=== PATIENT | male | born 1955 | race Caucasian/White ===

== ENCOUNTER 2018-07-11 14:22 | Emergency (ER) | payer SELFPAY ==
[2018-07-11 14:39] VITALS: BP 144/106
--- NOTE | 2018-07-11 16:24 | ED Physician Documentation ---
History of Present Illness - Stated complaint Stated Complaint: MED REFILL - Chief complaint Chief Complaint: General - Additonal information Additional information: 62-year-old male presents the emergency department for refills of Ambien and Ativan. The patient has no acute medical complaint and is only requesting medication refills. The patient denies any suicidal or homicidal ideation Review of Systems Constitutional: denies: Fever, Chills Eyes: denies: Discharge Ears: denies: Ear pain Throat: denies: Sore throat Cardiac: denies: Chest pain / pressure Respiratory: denies: Cough GI: denies: Abdominal Pain : denies: Dysuria Musculoskeletal: denies: Neck pain Neurologic: denies: Generalized weakness Psychiatric: denies: Suicidal, Homicidal Immunocompromised: denies: Chemotherapy PD PAST MEDICAL HISTORY - Past Medical History Psych: Anxiety Other Past Medical History: spinal stenosis - Past Surgical History Past Surgical History: Yes General: Other Ortho: Arthroscopic surgery - Present Medications Home Medications: Ambulatory Orders Medication Instructions Recorded Confirmed Zolpidem [Ambien] 10 mg PO HS 07/11/18 07/11/18 - Allergies Allergies/Adverse Reactions: Allergies Allergy/AdvReac Type Severity Reaction Status Date / Time No Known Drug Allergies Allergy Verified 07/11/18 15:40 - Social History Does the pt smoke?: No Smoking Status: Never smoker Does the pt drink ETOH?: No Does the pt have substance abuse?: No - Immunizations Immunizations are current?: No Immunizations: TDAP >10years/unknown - POLST Patient has POLST: No PD ED PE NORMAL - General General: Alert and oriented X 3, No acute distress - HEENT HEENT: Atraumatic, PERRL, EOMI, Ears normal - Derm Derm: Normal color - Extremities Extremities: No deformity - Neuro Neuro: Alert and oriented X 3, Normal speech - Psych Psych: Normal mood Results - Vitals Vitals: Vital Signs - 24 hr 07/11/18 14:35 Temperature 36.1 C L Heart Rate 111 H Respiratory 16 Rate Blood Pressure 144/106 H O2 Saturation 96 Oxygen O2 Source Room air PD MEDICAL DECISION MAKING - ED course ED course: The patient requested a refill of his controlled substances, I explained to him that I would not be able to refill Ambien or Ativan for him. I explained that this needs to come from one prescriber. I suggested that he take melatonin and or Unisom to help as a sleep aid. The patient reports not taking his medications for several days. Presently the patient appears appropriate for discharge. I advised returning for any worsening or any concerns Departure - Departure Disposition: 01 Home, Self Care Clinical Impression: Medication requested Condition: Good Follow-Up: [facility] [Provider Group] [facility] [Provider Group] [facility] [Provider Group] Comments: Please contact primary care for medication refills. Please return to the emergency department for any worsening or any concerns
== END 2018-07-11 16:45 | disposition home or self-care (01) ==
LOC: ED 14:22
DX: Z76.0 Encounter for issue of repeat prescription (principal); F41.9 Anxiety disorder, unspecified
CPT/HCPCS: 99281; 99282

== ENCOUNTER 2018-09-10 07:15 | Outpatient (CLI) | payer MEDICAID ==
[2018-09-10 13:56] LABS: BASOPHILS # (AUTO) 0.1 10^3/uL (0.0-0.1); BASOPHILS % (AUTO) 0.9 %; EOSINOPHILS # (AUTO) 0.2 10^3/uL (0.0-0.7); EOSINOPHILS % (AUTO) 2.7 %; HGB - HEMOGLOBIN 15.5 g/dL (14.0-18.0); LYMPHOCYTES # (AUTO) 2.3 10^3/uL (1.5-3.5); LYMPHOCYTES % (AUTO) 32.6 %; MEAN CORPUSCULAR HEMOGLOBIN 31.3 pg (27.0-31.0); MEAN CORPUSCULAR HGB CONC 33.9 g/dL (32.0-36.0); MEAN CORPUSCULAR VOLUME 92.3 fL (80.0-94.0); MEAN PLATELET VOLUME 10.5 fL (7.4-11.4); MONOCYTES # (AUTO) 0.5 10^3/uL (0.0-1.0); MONOCYTES % (AUTO) 6.8 %; PLT - PLATELET COUNT 207 10^3/uL (130-450); RED BLOOD COUNT 4.96 10^6/uL (4.70-6.10); RED CELL DISTRIBUTION WIDTH 13.4 % (12.0-15.0); WHITE BLOOD COUNT 7.1 x10^3/uL (4.8-10.8)
[2018-09-10 14:22] LABS: THYROID STIMULATING HORMONE 3.04 uIU/mL (0.34-5.60)
[2018-09-10 14:34] LABS: FOLATE 20.78 ng/mL (5.90 - >24.8)
[2018-09-10 15:29] LABS: ALBUMIN 3.6 g/dL (3.2-5.5); ALBUMIN/GLOBULIN RATIO 1.2 (1.0-2.2); ALKALINE PHOSPHATASE 83 IU/L (42-121); ALT ALANINE AMINOTRANSFERASE 27 IU/L (10-60); AST ASPARTATE AMINOTRANSFERASE 19 IU/L (10-42); BILIRUBIN,TOTAL 0.8 mg/dL (0.2-1.0); BUN - BLOOD UREA NITROGEN 26 mg/dL (6-20); CALCIUM 8.5 mg/dL (8.5-10.3); CARBON DIOXIDE - CO2 22 mmol/L (21-32); CHLORIDE 97 mmol/L (101-111); CHOL/HDL RATIO 10.7 (<5.0); CHOLESTEROL 289 mg/dL; CREATININE 0.8 mg/dL (0.6-1.2); GFR - MDRD 97 (>89); GLUCOSE 348 mg/dL (70-100); HDL CHOLESTEROL 27 mg/dL; SODIUM 130 mmol/L (135-145); TOTAL PROTEIN 6.7 g/dL (6.7-8.2)
== END 2018-09-10 23:59 ==
LOC: LAB.N 07:15
PROVIDERS: ATTEND Nurse Practitioner
DX: I10 Essential (primary) hypertension (principal); E55.9 Vitamin D deficiency, unspecified; R53.83 Other fatigue
CPT/HCPCS: 36415; 80053; 80061; 82306; 82607; 82746; 83721; 84443; 85025